=== PATIENT | male | born 1945 | race Caucasian/White ===

== ENCOUNTER → 2017-01-18 | Outpatient (CLI) | payer MEDICARE ==
[2017-01-18 17:02] LABS: Blood Urea Nitrogen 18 mg/dL (9-20); Non-African American GFR(MDRD) >60 (>60 ml/min/1.73 sqM)
--- NOTE | 2017-01-18 18:11 | CT ---
EXAMINATION TYPE: CT chest w con DATE OF EXAM: 01/18/2017 COMPARISON: 07/12/2016 HISTORY: Occasional shortness of breath CT DLP: 284.1 mGycm Automated exposure control for dose reduction was used. CONTRAST: CT scan of the chest is performed with IV Contrast, patient injected with 100 mL of Omnipaque 300. FINDINGS: The lungs are clear of consolidation. There is no evidence of a pulmonary mass. There is no pleural e ffusion. Heart size is normal. There is no mediastinal adenopathy. There is no evidence of aortic ane urysm or dissection. There are no hilar masses. There is no pericardial effusion. Bony thorax is inta ct. IMPRESSION: Negative CT scan of the chest. No evidence of any significant obstructive lung disease. No adverse change compared to old exam.
== END | disposition home or self-care (01) ==
LOC: RADCTMAIN 16:35
PROVIDERS: ATTEND Family Medicine
DX: J95.851 Ventilator associated pneumonia (principal)
CPT/HCPCS: 82565; 84520; 71260; 36415; Q9967

== ENCOUNTER 2018-03-04 11:31 | Day surgery (SDC) | payer MEDICARE ==
[2018-02-27 15:39] VITALS: BMI 23.9
[~2018-03-04 11:31] MED LIST: LACTATED RINGERS 1,000 ML IV SCH; LIDOCAINE 1% 20 ML VIAL (10MG/ML) FOR IV START INTRADERMA PRN; MIDAZOLAM 2 MG/2 ML VIAL IV PRN
[2018-03-04 12:06] VITALS: TEMP 97.8
[2018-03-04] MEDS ORDERED: PROPOFOL 10 MG/ML 20 ML VIAL IV ONE (13:08)
[2018-03-04] MEDS ORDERED: LIDOCAINE 1% INJ 10MG/ML (20 ML MDV) ONE (13:08)
[2018-03-04 13:35] VITALS: RESP 18
--- NOTE | 2018-03-04 13:35 | P.PCN ---
Date of Procedure: 03/04/18 Procedure(s) Performed: Procedure: Total colonoscopy. Preoperative diagnosis: Screening for neoplasia. Postoperative diagnosis: 1. Diverticulosis with no evidence of acute diverticulitis or strictures. 2. No polyps or tumors seen. Brief clinical history: The patient is a 72-year-old male who is scheduled for this evaluation for screening for neoplasia because of her age and history of polyps. He had a prior exam 5-10 years ago. There is no family history of colon cancer or any abdominal pains, change in bowel habits or bleeding. Procedure: With the patient on his left lateral decubitus position and after informed consent and adequate sedation, the perianal area was inspected and it did not show any fissures or fistulas. There were no masses felt on digital rectal examination. The Olympus CFQ 160L video colonoscope was then inserted in the rectum in the usual fashion and advanced to the cecum. There were several diverticular orifices scattered along the length of the bowel wall including the right side with no evidence of acute diverticulitis or strictures. The mucosa appeared healthy. No polyps or tumors were seen. I retroflexed the endoscope in the rectum before the endoscope was withdrawn. The patient tolerated the procedure well. Plan: The patient was reassured. Discussed dietary measures. He will follow up with you as planned and I recommended repeat exam in 5 years.
[2018-03-04 14:00] VITALS: BP 148/84; PULSE 62
== END 2018-03-04 14:24 | disposition home or self-care (01) ==
LOC: ORWHC2ENDO 11:31
DX: Z12.11 Encounter for screening for malignant neoplasm of colon (principal); K57.30 Diverticulosis of large intestine without perforation or abscess without bleeding; E78.5 Hyperlipidemia, unspecified; Z86.010 Personal history of colon polyps; Z79.82 Long term (current) use of aspirin; Z79.899 Other long term (current) drug therapy; Z87.891 Personal history of nicotine dependence
CPT/HCPCS: G0105; J2001; J2704; 45378

== ENCOUNTER → 2018-09-12 | Outpatient (CLI) | payer MEDICARE ==
--- NOTE | 2018-09-12 15:30 | US ---
EXAMINATION TYPE: US duplex aorta DATE OF EXAM: 09/12/2018 COMPARISON: NONE CLINICAL HISTORY: Z13.61 screening for cardiovascular disorders. h/o smoking, no symptoms and no fami ly history EXAM MEASUREMENTS: Abdominal Aorta: Proximal: not seen due to bowel gas Mid: 1.5 x 1.4cm Distal: 1.4 x 1.9cm Bifurcation: Rt=1.0cm Lt=1.0cm Limited views due to bowel gas, what was seen appears wnl for caliber. IMPRESSION: 1. Proximal abdominal aorta not visualized due to bowel gas. 2. Some widening of the distal abdominal aorta in the transverse dimension.
== END | disposition home or self-care (01) ==
LOC: RADUSWWP 08:42
PROVIDERS: ATTEND Family Medicine
DX: Z13.6 Encounter for screening for cardiovascular disorders (principal); I77.811 Abdominal aortic ectasia
CPT/HCPCS: 93979

== ENCOUNTER → 2022-07-11 | Outpatient (CLI) | payer MEDICARE ==
--- NOTE | 2022-07-11 10:04 | US ---
EXAMINATION TYPE: US duplex aorta DATE OF EXAM: 07/11/2022 COMPARISON: 09/12/2018 CLINICAL HISTORY: I71.40 ABDOMINAL AORTIC ANEURYSM, WITHOUT RUPTURE,. TECHNIQUE: Multiple sonographic images of the abdominal aorta are obtained. FINDINGS: EXAM MEASUREMENTS: Abdominal Aorta: AP x Width Proximal: Not visualized Mid: 1.5 x 1.2cm Distal: 1.6 x 1.6cm Bifurcation: BRIT 0.81 x 0.81cm OLGA 1.1 x 0.89cm Atherosclerosis scattered throughout the arterial vasculature. IMPRESSION: No evidence of aortic aneurysm.
== END | disposition home or self-care (01) ==
LOC: RADUSWWP 08:19
PROVIDERS: ATTEND Family Medicine
DX: I71.40 Abdominal aortic aneurysm, without rupture, unspecified (principal)
CPT/HCPCS: 93979

== ENCOUNTER → 2023-07-11 | Outpatient (CLI) | payer MEDICARE ==
--- NOTE | 2023-07-11 11:57 | CTL ---
EXAMINATION TYPE: CT Low Dose Lung DATE OF EXAM: 07/11/2023 9:06 AM CLINICAL INDICATION:Male, 78 years old with history of Z12.2 Lung cancer screening; Lung CA screening , history of tobacco use. COMPARISON: 07/12/2016. TECHNIQUE: Multiple axial non-contrast scans were obtained from approximately the lung apices through the upper abdomen. Coronal and sagittal reformatted images were obtained. Low dose technique was uti lized. CT DLP: 98.6 mGycm, Automated exposure control for dose reduction was used. CT Contrast: Contrast used: None Oral contrast used: None FINDINGS: ======== Lack of intravenous contrast and low dose technique limits the evaluation of the vascular and soft ti ssue structures. LUNGS: No evidence of pulmonary fibrosis. No evidence of focal consolidation, pneumothorax or pleural effusion. Nodules: RUL: New from 2016 nodule in the lower aspect of the right upper lobe measuring 4 mm series 5 nupur ge 34 RML: Intrafissural lymph nodes inferior there is 5 image 35, nodule measuring 4 mm series 5 image 37. These are all stable. RLL: None. LUCINA: Groundglass opacity measuring 8 mm, previously 4 mm in 2016. Series 5 image 23. LLL: Stable 3 mm series 5 image 37. AIRWAY: Patent and unremarkable. HEART: The Heart is mildly enlarged for size. Coronary artery atherosclerosis. MEDIASTINUM: No gross evidence of adenopathy. VASCULATURE: No aortic aneurysm. MUSCULOSKELETAL: No acute osseous abnormalities SOFT TISSUES/LYMPH NODES: Unremarkable. LOWER NECK: No significant findings. UPPER ABDOMEN: No significant findings. IMPRESSION: Stable pulmonary nodules. At least one pulmonary nodule has increased in size which is groundglass in the left upper lung compared to 2016. 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 Continued surveillance recommended. Given its size is less than 30 mm one-year follow-up albert mmended. CT LUNG RAD AND CT CHEST RECOMMENDATION: Lung-Rad 2 Continue annual screening with LDCT in 12 months. S Modifier (other clinically significant findings): None Recommend smoking cessation (if current smoker), or continuation of smoking cessation (if prior smoke r). Annual screening for lung cancer with low-dose computed tomography is recommended in adults ages 55 to 77 years who have a 30 pack-year smoking history and currently smoke or have quit within the pa st 15 years. Screening should be discontinued once a person has not smoked for 15 years or develops a health problem that substantially limits life expectancy or the ability or willingness to have curat lázaro lung surgery. Lung rads 2021 [email or web address]
== END | disposition home or self-care (01) ==
LOC: RADCTMAIN 08:46
PROVIDERS: ATTEND Family Medicine
DX: Z12.2 Encounter for screening for malignant neoplasm of respiratory organs (principal); F17.210 Nicotine dependence, cigarettes, uncomplicated; R91.8 Other nonspecific abnormal finding of lung field
CPT/HCPCS: 71271

== ENCOUNTER → 2024-12-22 | Outpatient (CLI) | payer MEDICARE ==
--- NOTE | 2024-12-22 11:54 | US ---
EXAMINATION TYPE: US prostate transrectal DATE OF EXAM: 12/22/2024 COMPARISON: NONE CLINICAL INDICATION: Male, 79 years old with history of R97.20 ELEVATED PSA; elevated PSA TECHNIQUE: Grayscale and color Doppler imaging of the prostate gland. This examination was performed using the transrectal probe. EXAM MEASUREMENTS: Gland Size: 2.9 x 1.8 x 1.1cm Volume: 3.15ml Predicted PSA: 0.38 Actual PSA (if available):4.6 Exam is extremely limited due to shadowing of gland. Gland not well visualized with ultrasound. IMPRESSION: Extremely limited examination due to shadowing. No gross evidence for suspicious mass. Recommend furt her evaluation with prostate MRI. [facility], , 12/22/2024 11:52 AM
== END | disposition home or self-care (01) ==
LOC: RADUSWWP 09:53
PROVIDERS: ATTEND Family Medicine
DX: R97.20 Elevated prostate specific antigen [PSA] (principal)
CPT/HCPCS: 76872

== ENCOUNTER → 2025-01-18 | Outpatient (CLI) | payer MEDICARE ==
--- NOTE | 2025-01-18 08:03 | MR ---
"EXAMINATION TYPE: MR Prostate wo/w con DATE OF EXAM: 01/18/2025 7:45 AM COMPARISON: None. CLINICAL INDICATION: Male, 79 years old with history of R93.89 ABN FINDINGS ON DX IMAGING; Elevated P SA, Abnormal U/S TECHNIQUE: Multi-planar, multi-sequence imaging of the pelvis is performed prior to and following the uncomplicated administration of bolus intravenous gadolinium. IV Contrast: 7 mL Gadobutrol Interpretive Criteria: PI-RADS v2.1 SERUM PSA: 11/2024= 4.6, 01/2022= 2.1 SURGICAL PATHOLOGY: No data available. FINDINGS: Prostatic dimensions: 5.4 x 6.5 x 4.1 cm. Ellipsoid Volume:75.35 (PSA density=0.06 ng/mL/mL) CENTRAL GLAND (Central and Transition Zones/CZ+TZ): Multiple bilateral, heterogenous appearing hypertrophic stromal nodules, without suspicious lesion. M edian lobe hypertrophy with protrusion into the base of the bladder. (PI-RADS 2) PERIPHERAL ZONE (PZ): Bilateral linear, indistinct wedgelike areas of low ADC, and low T2 signal, No evidence of masslike a bnormality, or localized perfusional hypervascularity, to further suggest a focus of clinically signi ficant prostate cancer. (PI-RADS 2) SEMINAL VESICLES (SV): Symmetric and unremarkable. PERIPROSTATIC TISSUES: Unremarkable. LYMPH NODES: No enlarged pelvic lymph node. REMAINING PELVIS: There is a pedunculated bladder wall mass near the left ureter orifice measuring 23 x 17 mm No abnormal free or organized intrapelvic fluid collection. No pathologic bowel dilation or mural thickening. Colonic diverticula are present. No hernia visualized OSSEOUS STRUCTURES: No suspicious osseous abnormality. IMPRESSION: 1. Pedunculated bladder wall mass concerning for malignancy. Correlate with urinalysis. Cystoscopy r ecommended. This is felt to be separate from BPH findings. 2. No specific features for high-risk prostate cancer. Maximum PI-RADS score: 2. 3. Moderate BPH, estimated gland volume 75.35 (PSA density=0.06 ng/mL/mL) 4. No suspicious osseous lesion. No lymphadenopathy. No evidence of prostate adenocarcinoma involvin g the periprostatic tissues. 5. Colonic diverticulosis. A Yellow level critical message alert has been initiated for Todd Jaime MD via the [employer] | Critical Results System on 01/18/2025 8:00 AM. This message alert has been sent to Todd Jaime MD via the preferences provided by the clinician for the receipt of Radiology Critical Findings. Message ID [id number]. [facility], , 01/18/2025 8:00 AM"
== END | disposition home or self-care (01) ==
LOC: RADMRIMAIN 06:42
PROVIDERS: ATTEND Family Medicine
DX: K57.30 Diverticulosis of large intestine without perforation or abscess without bleeding (principal); R93.89 Abnormal findings on diagnostic imaging of other specified body structures; N40.0 Benign prostatic hyperplasia without lower urinary tract symptoms
CPT/HCPCS: 72197; A9585